=== PATIENT | female | born 1940 | race Two or more races ===

== ENCOUNTER 2016-12-06 13:54 | Inpatient (IN) | payer MEDICARE, MEDICAID ==
[~2016-12-06] VITALS: Ht 154.9 cm; Wt 70.3 kg
[2016-12-06] VITALS (11 sets, daily range): BP systolic 61–83; BP diastolic 40–54
[~2016-12-06 13:54] MED LIST: Piperacillin/Tazobactam 4.5 GM in NS 110 ML IV STA
[2016-12-06] MEDS ORDERED: Vancomycin 1 GM in NS 275 ML IV ONE (14:00)
--- NOTE | 2016-12-06 14:03 | Emergency Room Report ---
History of Present Illness General Chief Complaint: Altered Level of Consciousness Source: Family Member, EMS Present Illness HPI The patient brought to emergency department with hypotension, dyspnea and altered mental status. She's coming from [facility]. She is a DO NOT RESUSCITATE. In the field her glucose is 120. Her blood pressure was 73. EKG showed atrial fibrillation. No other history is available except from family. Son states she had recent hosp for UTI. Treated and they were told resolved. Again with fever and sy few days ago. SNF reported, no evidence of UTI. Today noted to be unresponsive by family and 911 was called. Problems with LE paralysis due to spinal issue. Unable to ambulate. Apparently, POLST recently completed by daughter. Allergies: Coded Allergies: No Known Allergies (Unverified , 12/06/16) Patient History Limited by: medical condition Past Medical History: see triage record Social History Narrative [facility] Reviewed Nursing Documentation: PMH: Agreed, PSxH: Agreed Nursing Documentation-PMH Past Medical History: No History, Except For Hx Cardiac Problems: Yes - AFIB, OR, CHF Hx Hypertension: Yes Hx COPD: No - OSTEOPOROSIS Hx Diabetes: No - RT HIP HEMIARTHROPLASTY History Of Psychiatric Problem: Yes - DEMENTIA Hx Cerebrovascular Accident: Yes Hx Seizures: No - WEAKNESS Review of Systems All Other Systems: limited Physical Exam Vital Signs Date Time Temp Pulse Resp B/P Pulse Ox O2 Delivery O2 Flow Rate FiO2 12/06/16 13:48 120 20 73/33 100 Non-Rebreather 15.0 Sp02 EP Interpretation: reviewed, normal General Appearance: mild distress, Chronically Ill, Stupor Head: normocephalic Eyes: bilateral eye normal inspection ENT: moist mucus membranes Neck: supple Respiratory: lungs clear, normal breath sounds, other - Tachypnea Cardiovascular #1: tachycardia, irregularly irregular, edema - Bilateral lower extremity Cardiovascular #2: 2+ radial (R) Gastrointestinal: normal inspection, normal bowel sounds, non tender, no mass, non-distended Musculoskeletal: back normal Neurologic: other - Unresponsive to pain Psychiatric: other - Unresponsive Skin: normal inspection, warm/dry Procedures Critical Care Time Critical Care Time Total Critical Care Time: 30 min bedside evaluation and treatment excludes procedures (EKG). Reason for critical care: severe sepsis, stupor, determination level of care Possible complications: hypotension, hypertension, OR, shock, arrhythmias, metabolic acidosis, end organ damage, respiratory failure. Interventions: sepsis resuscitation, antibiotics, consultation with and Miner Course: Patient comatose with hypotension and tachypnea. Severe sepsis with resuscitation fluids and antibiotics. Reassessments. Discussion level of care with family. Discussion with Miner. Discussion with admitting MD. Patient improved mentation but still critical. Consultations: nursing staff, EMS, family, Miner, admitting MD Performed by: Dr. Perdomo Tolerated well condition = critical Medical Decision Making Diagnostic Impression: Primary Impression: Severe sepsis Additional Impressions: UTI (urinary tract infection) Qualified Codes: N30.00 - Acute cystitis without hematuria Respiratory alkalosis Hypotension Qualified Codes: I95.89 - Other hypotension ER Course Patient presents with hypotension tachypnea and tachycardia. Differential includes dehydration, sepsis, pneumonia amongst others. Evaluation will be with blood cultures, lactate, EKG, chest x-ray and lactate with other labs. She 's receiving a fluid bolus was begun in the field. She'll get sepsis rehydration. Antibiotics have been ordered. EKG with a fib tachy. Labs with leukocytosis and pyuria. ABG resp alkalosis. BP still low but patient more responsive. Less tachypneic. After 30 ml/kg bolus - repeat 1 liter bolus. I have discussed patient with family and also with Kristofer - Dr. Stein. He recommends patient to stay at [facility]. Still hypotensive, but less tachycardic. More responsive. Admit med Dr. Carrasco. After patient on floor - discussed with son. Laboratory Tests Test 12/06/16 13:30 12/06/16 14:15 12/06/16 14:30 Arterial Blood pH 7.590 (7.350-7.450) Arterial Blood Partial Pressure CO2 19.2 mmHg (35.0-45.0) *L Arterial Blood Partial Pressure O2 291.6 mmHg (75.0-100.0) H Arterial Blood HCO3 18.2 mmol/L (22.0-26.0) L Arterial Blood Oxygen Saturation 99.2 % (92.0-98.0) H Arterial Blood Base Excess -2.4 Noah Test Positive White Blood Count 29.4 K/UL (4.8-10.8) *H Red Blood Count 3.62 M/UL (4.20-5.40) L Hemoglobin 8.6 G/DL (12.0-16.0) L Hematocrit 28.4 % (37.0-47.0) L Mean Corpuscular Volume 78 FL (80-99) L Mean Corpuscular Hemoglobin 23.8 PG (27.0-31.0) L Mean Corpuscular Hemoglobin Concent 30.4 G/DL (32.0-36.0) L Red Cell Distribution Width 16.1 % (11.6-14.8) H Platelet Count 278 K/UL (150-450) Mean Platelet Volume 6.0 FL (6.5-10.1) L Neutrophils (%) (Auto) % (45.0-75.0) Lymphocytes (%) (Auto) % (20.0-45.0) Monocytes (%) (Auto) % (1.0-10.0) Eosinophils (%) (Auto) % (0.0-3.0) Basophils (%) (Auto) % (0.0-2.0) Differential Total Cells Counted 100 Neutrophils % (Manual) 75 % (45-75) Lymphocytes % (Manual) 10 % (20-45) L Monocytes % (Manual) 7 % (1-10) Eosinophils % (Manual) 0 % (0-3) Basophils % (Manual) 0 % (0-2) Band Neutrophils 8 % (0-8) Platelet Estimate Adequate Platelet Morphology Normal Polychromasia 1+ Hypochromasia 2+ Anisocytosis 1+ Microcytosis 1+ Prothrombin Time 23.7 SEC (9.30-11.50) H Prothrombin Time INR 2.2 (0.9-1.1) H PTT 36 SEC (23-33) H Sodium Level 135 mEQ/L (135-145) Potassium Level 5.1 mEQ/L (3.4-4.9) H Chloride Level 99 mEQ/L (98-107) Carbon Dioxide Level 17 mEQ/L (20-30) L Anion Gap 19 (5-15) H Blood Urea Nitrogen 44 mg/dL (7-23) H Creatinine 1.7 mg/dL (0.5-0.9) H Estimate Glomerular Filtration Rate mL/min (>60) Glucose Level 93 mg/dL (74-106) Lactic Acid Level 6.40 mmol/L (0.66-2.22) H Calcium Level 7.5 mg/dL (8.6-10.2) L Total Bilirubin 0.4 mg/dL (0.0-1.2) Aspartate Amino Transferase (AST) 22 U/L (5-40) Alanine Aminotransferase (ALT) 9 U/L (3-33) Alkaline Phosphatase 111 U/L (35-104) H Total Creatine Kinase 185 U/L (26-140) H Troponin I < 0.30 ng/mL (<=0.30) Pro-B-Type Natriuretic Peptide 59136 pg/mL (0-450) H Total Protein 6.0 g/dL (6.6-8.7) L Albumin 1.9 g/dL (3.5-5.2) L Globulin 4.1 g/dL Albumin/Globulin Ratio 0.4 (1.0-2.7) L Urine Color Yellow Urine Appearance Turbid Urine pH 7 (4.5-8.0) Urine Specific [place] 1.010 (1.005-1.035) Urine Protein 4+ (NEGATIVE) H Urine Glucose (UA) Negative (NEGATIVE) Urine Ketones Negative (NEGATIVE) Urine Occult Blood 5+ (NEGATIVE) H Urine Nitrite Negative (NEGATIVE) Urine Bilirubin Negative (NEGATIVE) Urine Urobilinogen Normal MG/DL (0.0-1.0) Urine Leukocyte Esterase 3+ (NEGATIVE) H Urine RBC Tntc /HPF (0 - 2) H Urine WBC Tntc /HPF (0 - 2) H Urine Squamous Epithelial Cells Few /LPF (NONE/OCC) Urine Bacteria Many /HPF (NONE) H EKG Diagnostic Results Rate: tachycardiac Rhythm: other - a fib ST Segments: no acute changes Rhythm Strip Diag. Results Rhythm: no PVC's, no ectopy, other - a fib Chest X-Ray Diagnostic Results Chest X-Ray Diagnostic Results : Chest X-Ray Ordered: Yes # of Views/Limited/Complete: 1 View Indication: Other EP Interpretation: Yes Interpretation: no consolidation, no effusion, no pneumothorax, other - inc cor Impression: Other Interpreting ER Provider: Electronically signed by Jay Perdomo MD Last Vital Signs Date Time Temp Pulse Resp B/P Pulse Ox O2 Delivery O2 Flow Rate FiO2 12/07/16 00:00 97.7 96 20 76/45 94 12/06/16 20:10 Non-Rebreather 14.0 Status: improved Disposition: ADMITTED INPATIENT Condition: Critical Jay Perdomo M.D. Dec 06, 2016 14:03
[2016-12-06 14:42] LABS: MEAN CORPUSCULAR HEMOGLOBIN 23.8 PG (27.0-31.0); MEAN CORPUSCULAR HGB CONC 30.4 G/DL (32.0-36.0); MEAN CORPUSCULAR VOLUME 78 FL (80-99); PLATELET COUNT 278 K/UL (150-450); RED BLOOD COUNT 3.62 M/UL (4.20-5.40); RED CELL DISTRIBUTION WIDTH 16.1 % (11.6-14.8)
[2016-12-06 14:43] LABS: ABG ALLEN TEST POSITIVE; ABG BASE EXCESS -2.4; ABG PCO2 19.2 mmHg (35.0-45.0)
[2016-12-06 14:44] LABS: WHITE BLOOD COUNT 29.4 K/UL (4.8-10.8)
[2016-12-06 14:48] LABS: INR 2.2 (0.9-1.1); PROTHROMBIN TIME 23.7 SEC (9.30-11.50)
[2016-12-06 14:49] LABS: APPEARANCE,URINE TURBID; KETONES,URINE NEGATIVE (NEGATIVE); LEUKOCYTE ESTERASE ,URINE 3+ (NEGATIVE); NITRITE,URINE NEGATIVE (NEGATIVE); PH,URINE 7 (4.5-8.0); PROTEIN,URINE 4+ (NEGATIVE); UROBILINOGEN,URINE NORMAL MG/DL (0.0-1.0)
[2016-12-06 14:57] LABS: BACTERIA,URINE MANY /HPF; RBC,URINE TNTC /HPF (0 - 2); SQUAMOUS EPITHELIAL CELL,UR FEW /LPF (NONE/OCC); WBC,URINE TNTC /HPF (0 - 2)
[2016-12-06 15:03] LABS: TROPONIN I < 0.30 ng/mL (<=0.30)
[2016-12-06 15:06] LABS: ALANINE AMINOTRANSFERASE 9 U/L (3-33); ALBUMIN/GLOBULIN RATIO 0.4 (1.0-2.7); ANION GAP 19 (5-15); ASPARTATE AMINO TRANSFERASE 22 U/L (5-40); CALCIUM 7.5 mg/dL (8.6-10.2); CARBON DIOXIDE 17 mEQ/L (20-30); CHLORIDE 99 mEQ/L (98-107); CREATININE 1.7 mg/dL (0.5-0.9); HEMOLYSIS 45; POTASSIUM 5.1 mEQ/L (3.4-4.9); SODIUM 135 mEQ/L (135-145)
[2016-12-06 15:08] LABS: REFLEX LACTIC ACID YES OR NO YES
[2016-12-06] MEDS ORDERED: Zosyn 4.5gm inj ONE (15:23)
--- NOTE | 2016-12-06 15:30 | Diagnostic Imaging Report ---
Indication: Dyspnea Comparison: None A single view chest radiograph was obtained. Findings: Heart is enlarged. Lungs are essentially clear. Bronchovascular markings do appear somewhat prominent. Bones are osteopenic. Aorta is calcified. Impression: Limited evaluation due to low lung volume. No acute disease
[2016-12-06 15:48] LABS: ANISOCYTOSIS 1+; BAND NEUTROPHILS % (MANUAL) 8 % (0-8); BASOPHILS % (MANUAL) 0 % (0-2); EOSINOPHILS % (MANUAL) 0 % (0-3); HYPOCHROMASIA 2+; LYMPHOCYTES % (MANUAL) 10 % (20-45); NEUTROPHILS % (MANUAL) 75 % (45-75); PLATELET ESTIMATE ADEQUATE; POLYCHROMASIA 1+; TOTAL CELLS COUNTED 100
[2016-12-06 15:49] LABS: MICROCYTES 1+; PLATELET MORPHOLOGY NORMAL
[2016-12-06] MEDS ORDERED: Vancomycin 1gm inj IVPB ONE (16:36)
[2016-12-06] MEDS ORDERED: UNOBMED (17:07)
[2016-12-06] MEDS ORDERED: DIOVAN80 MG ORAL (21:26)
[2016-12-06] MEDS ORDERED: ACETAMINOPHEN325 M1 ORAL (21:26)
[2016-12-06] MEDS ORDERED: FUROSEMIDE20 M1 ORAL (21:26)
[2016-12-06] MEDS ORDERED: WARFARIN SODIUM1 MG ORAL (21:26)
[2016-12-06] MEDS ORDERED: METOPROLOL ER-1 EAC1 PO (21:26)
[2016-12-06] MEDS ORDERED: VITAMIN D1000 UNI1 ORAL (21:26)
[2016-12-06] MEDS ORDERED: ATORVASTATIN CA10 MG ORAL (21:26)
[2016-12-07] VITALS (8 sets, daily range): BP systolic 76–130; BP diastolic 41–58
[2016-12-07] MEDS ORDERED: VANCOMYCIN1 GM/2502 IVPB (11:25)
[2016-12-07] MEDS ORDERED: ACETAMINOPHEN325 M1 ORAL (11:26)
[2016-12-07] MEDS ORDERED: SODIUM CHLORIDE50 M1 IV (11:32)
[2016-12-07] MEDS ORDERED: ZOSYN 3.373.375 GM/1 IVPB (12:54)
--- NOTE | 2016-12-07 15:35 | History & Physical ---
History and Physical History & Physicial Dictated for Int Med-Dr Carrasco no. [id number] GASPER SOLIS Dec 07, 2016 15:35
[2016-12-07] MEDS ORDERED: Vancomycin 750mg/D5W 275ml IVPB SCH ×2 (16:30)
[2016-12-07] MEDS: Piperacillin/Tazobactam 3.375 GM in D5W 110 ML IVPB SCH (19:35)
--- NOTE | 2016-12-07 21:50 | Consultation ---
History of Present Illness General Chief Complaint: Altered Level of Consciousness Present Illness Allergies: Coded Allergies: No Known Allergies (Unverified , 12/06/16) Medication History Scheduled [id number]-Atzf-Juwpndcx,Iso (Zosyn 3.375 Gm Pre Mix-Bag), 3.375 GM IVPB EVERY 8 HOURS, (Reported) Vancomycin Hcl/D5w (Vancomycin-D5w 1 G/250 Ml), 750 MG IVPB Q24H, (Reported) Scheduled PRN 0.9 % Sodium Chloride (Sodium Chloride), 1,000 ML IV Cont PRN for 75mls/hr, ( Reported) Acetaminophen* (Acetaminophen 325MG Tablet*), 650 MG ORAL Q4H PRN for Mild Pain/ Temp > 100.5, (Reported) Discontinued Medications Acetaminophen* (Acetaminophen 325MG Tablet*), 325 MG ORAL Q4H PRN for Pain Scale (3-5), (Reported) Discontinued Reason: MD discontinued med Atorvastatin Calcium* (Lipitor*), 10 MG ORAL BEDTIME, (Reported) Discontinued Reason: Medication dose changed Cholecalciferol (Vitamin D3)* (Vitamin D*), 1,000 UNIT ORAL DAILY, (Reported) Discontinued Reason: MD discontinued med Furosemide* (Lasix*), 20 MG ORAL DAILY, (Reported) Discontinued Reason: MD discontinued med Metoprolol Succinate/Hctz (Metoprolol Er-Hctz 100-12.5 Mg), 1 EACH PO, (Reported ) Discontinued Reason: MD discontinued med Unable to Obtain Medications (Unable To Obtain Meds), (Reported) Discontinued Reason: MD discontinued med Valsartan (Diovan), 80 MG ORAL DAILY, (Reported) Discontinued Reason: MD discontinued med Warfarin Sod* (Warfarin Sod*), 1 MG ORAL DAILY, (Reported) Discontinued Reason: MD discontinued med Patient History Healthcare decision maker Resuscitation status Do Not Resuscitate Advanced Directive on File Yes Physical Exam Last 24 Hour Vital Signs Date Time Temp Pulse Resp B/P Pulse Ox O2 Delivery O2 Flow Rate FiO2 12/07/16 20:00 97.9 95 20 103/48 96 Nasal Cannula 12/07/16 18:57 84 82/42 12/07/16 16:30 96.3 80 18 88/52 96 Room Air 12/07/16 12:14 97.7 86 19 130/46 98 Room Air 12/07/16 08:00 96.8 78 18 108/58 99 Nasal Cannula 12/07/16 04:00 97.9 81 20 80/41 100 12/07/16 00:00 97.7 96 20 76/45 94 Intake and Output 12/06/16 12/07/16 19:00 07:00 Intake Total 0 ml 195 ml Output Total 1400 ml Balance 0 ml -1205 ml Intake Oral 0 ml 120 ml IV Total 75 ml Output Urine Total 1400 ml # Bowel Movements 2 Height (Feet): 5 Height (Inches): 1.00 Weight (Pounds): 155 Medications Current Medications Medications (Trade) Dose Ordered Sig/Karol Route PRN Reason Start Time Stop Time Status Last Admin Dose Admin Acetaminophen 650 mg 650 mg Q4H PRN ORAL Mild Pain/Temp > 100.5 12/06/16 23:45 01/05/17 23:44 12/07/16 00:22 Piperacillin Sod/ Tazobactam Sod/ Dextrose (Zosyn/D5W) 110 ml @ 27.5 mls/hr Q12HR@0500,1700 IVPB 12/07/16 17:00 12/14/16 16:59 12/07/16 19:35 Sodium Chloride 1,000 ml @ 75 mls/hr [id number] IV 12/06/16 19:45 01/05/17 19:44 12/07/16 21:00 Vancomycin HCl 1 ea 1 ea DAILY PRN MISC Per rx protocol 12/06/16 17:45 01/05/17 17:44 Vancomycin HCl/ Dextrose (Vancomycin/D5W) 275 ml @ 183.708 mls/hr Q24H IVPB 12/07/16 16:30 12/12/16 16:29 12/07/16 16:52 ALFREDITO BANUELOS Dec 07, 2016 21:50
--- NOTE | 2016-12-07 23:52 | History and Physical Report ---
DATE OF ADMISSION: 12/06/2016 CHIEF COMPLAINT: The patient is a 76-year-old white female, who presents with complaint of altered mental status and hypotension. HISTORY OF PRESENT ILLNESS: The patient is a resident of [facility]. According to staff at [facility], the patient became febrile on 12/06/2016. The patient was having fevers of up to 100 degrees Fahrenheit. In the afternoon, the patient's blood pressure dropped to 80s over 40s. Blood pressure was then 70/palp. EMS was called. The patient was transported to [place] emergency room. Upon evaluation at [place] emergency room, the patient was found to have blood pressure systolic in the 70s. The patient was altered. The patient was admitted for hypotension to rule out sepsis. PAST MEDICAL HISTORY: Significant for, 1. Hypertension. 2. Atrial fibrillation. 3. Cerebrovascular accident in 2013. 4. Congestive heart failure. 5. Coronary artery disease, status post myocardial infarction in 2013. 6. Hyperlipidemia. 7. Alzheimer's dementia. PAST SURGICAL HISTORY: Significant for right hip total replacement. CURRENT MEDICATIONS: From [facility], 1. Calcium carbonate 600/400 mg one tablet p.o. twice daily. 2. Fosamax 70 mg one tablet p.o. every Friday. 3. Lasix 20 mg one tablet p.o. twice daily. 4. Lipitor 40 mg one tablet p.o. at bedtime. 5. Metoprolol 12.5 mg one tablet p.o. twice daily. 6. Nitroglycerin 0.4 mg sublingual p.r.n. 7. [place] 5/325 mg one tablet p.o. q.6 hours p.r.n. 8. Valsartan 40 mg one tablet p.o. twice daily. ALLERGIES: No known drug allergies. SOCIAL HISTORY: The patient is a and lives at [facility] as above. The patient denies tobacco or alcohol use. REVIEW OF SYSTEMS: Unable to assess, secondary to patient's mental status. PHYSICAL EXAMINATION: VITAL SIGNS: Blood pressure 73/33, respiratory rate 20, pulse 120, and temperature 99.4 degrees. GENERAL: The patient is well-developed, well-nourished, white female, who is lethargic, however, arousable. HEENT: Eyes, pupils are equal and responsive to light and accommodation. Extraocular movements are intact. NECK: Supple without lymphadenopathy. CHEST: Lungs are clear to auscultation bilaterally without wheezes or rales. CARDIOVASCULAR: Regular rhythm and rate. S1 and S2 are normal without murmurs, rubs, or gallops. ABDOMEN: Soft, nontender, and nondistended. Positive bowel sounds. No hepatosplenomegaly. Currently, no rebound or guarding noted. EXTREMITIES: Negative for clubbing, cyanosis, or edema. RECTAL: Refused. GENITAL: Refused. NEUROLOGIC: Cranial nerves II through XII are grossly intact without focal deficits. Motor strength is 5/5 bilaterally. Deep tendon reflexes 2+ plantar. LABORATORY STUDIES: WBC 29.4 (elevated), hemoglobin 8.6, hematocrit 20.4, and platelets 178,000. Sodium 135, potassium 5.1, chloride 99, CO2 17, BUN 44, creatinine 1.7, lactic acid 8.4, and glucose 93. DICTATION ENDS ABRUPTLY Lencho Marin M.D. DR: JERICHO JOB#: [id number] CC:
--- NOTE | 2016-12-07 23:52 | History and Physical Report ---
DATE OF ADMISSION: 12/06/[address] Carrasco. CHIEF COMPLAINT: The patient is a 76-year-old white female, who presents with chief complaint of altered mental status and hypotension. HISTORY OF PRESENT ILLNESS: The patient is a resident of [facility]. According to the patient's daughter, Buddy Núñez, the patient began to experience fever yesterday morning. According to staff of [facility], the patient began to experience fevers of up to 100 degrees Fahrenheit on 12/06/2016. The patient's blood pressure then dropped to the 70s. The patient presented to [place] [facility]. Blood pressure was found to be 70/30. The patient was admitted for hypotension, altered mental status and probable sepsis. PAST MEDICAL HISTORY: Significant for, 1. Hypertension. 2. Atrial fibrillation. 3. Hypercholesterolemia. 4. Cerebrovascular disease, status post cerebrovascular accident in 2013. 5. Congestive heart failure. 6. Coronary artery disease, status post myocardial infarction in 2013. PAST SURGICAL HISTORY: Significant for right total hip replacement. CURRENT MEDICATIONS: 1. Calcium carbonate one tablet p.o. twice daily. 2. Fosamax 70 mg one tablet p.o. every weekly on Friday. 3. Lasix 20 mg one tablet p.o. twice daily. 4. Lipitor 40 mg one tablet p.o. at bedtime. 5. Metoprolol 12.5 mg one tablet p.o. twice daily. 6. Nitroglycerin 0.4 mg one tablet p.o. p.r.n. 7. [place] 5/325 mg one tablet p.o. q.6 hours p.r.n. 8. Tylenol 650 mg one tablet p.o. q.8 hours p.r.n. 9. Valsartan 40 mg one tablet p.o. twice daily. ALLERGIES: No known drug allergies. SOCIAL HISTORY: The patient is . The patient lives at [facility] as above. The patient denies tobacco or alcohol use. REVIEW OF SYSTEMS: Unable to assess, secondary to patient's mental status. PHYSICAL EXAMINATION: VITAL SIGNS: Temperature 97.7 degrees, blood pressure 72/33, pulse 120, respiratory rate 20, and temperature 99.4 degrees. GENERAL: The patient is a well-developed, well-nourished, white female, in no apparent distress. The patient is lethargic, however, arousable. HEENT: Eyes, pupils are equal and responsive to light and accommodation. Extraocular movements are intact. NECK: Supple without lymphadenopathy. CHEST: Lungs are clear to auscultation bilaterally without wheezes or rales. CARDIOVASCULAR: Regular rhythm and rate. S1 and S2 are normal without murmurs, rubs, or gallops. ABDOMEN: Soft, nontender, and nondistended. Positive bowel sounds. No hepatosplenomegaly. Currently, no rebound or guarding noted. EXTREMITIES: Negative for clubbing, cyanosis, or edema. RECTAL: Refused. GENITAL: Refused. NEUROLOGIC: Cranial nerves II through XII are grossly intact without focal deficits. Motor strength is 5/5 bilaterally. Deep tendon reflexes 2+ plantar. LABORATORY AND DIAGNOSTIC STUDIES: WBC elevated at 29.4, hemoglobin 8.6, hematocrit 20.4, and platelets 278,000. Sodium 135, potassium 5.1, chloride 99, CO2 17, BUN 44, creatinine 1.7, and glucose 93. Lactic acid is 6.40. Troponin is less than 0.3. BNP elevated at 11,267. Urinalysis showed 4+ protein, 5+ occult blood, with 3+ leukocyte esterase, and too numerous to count RBCs and WBCs with many bacteria. ASSESSMENT: This is a 76-year-old white female. 1. Urinary tract infection. 2. Sepsis. 3. Leukocytosis. 4. Altered mental status. 5. Hypertension. 6. Atrial fibrillation. 7. Cerebrovascular disease. 8. Congestive heart failure. 9. Coronary artery disease. TREATMENT: 1. Urinary tract infection/sepsis. A urine culture is pending. The patient has been started empirically on vancomycin. Levaquin will be added for gram-negative coverage due to urinary tract infection. An Infectious Disease consultation was obtained with Dr. Munson. 2. Atrial fibrillation. A Cardiology consultation was obtained with Dr. Shai Fish. 3. Hypertension. Continue valsartan as above. 4. Atrial fibrillation as above. A Cardiology consultation was obtained with Dr. Shai Fish. 5. Cerebrovascular disease. 6. Congestive heart failure as above. A Cardiology consultation was obtained with Dr. Shai Fish. 7. Coronary artery disease. Lencho Marin M.D. DR: JERICHO JOB#: [id number] CC:
[2016-12-08 04:00] VITALS: BP 94/46
[2016-12-08] MEDS: Piperacillin/Tazobactam 3.375 GM in D5W 110 ML IVPB SCH (04:35)
[2016-12-08 07:35] LABS: MEAN CORPUSCULAR HEMOGLOBIN 22.9 PG (27.0-31.0); MEAN CORPUSCULAR HGB CONC 29.8 G/DL (32.0-36.0); MEAN CORPUSCULAR VOLUME 77 FL (80-99); MEAN PLATELET VOLUME 7.3 FL (6.5-10.1); PLATELET COUNT 288 K/UL (150-450); RED BLOOD COUNT 3.57 M/UL (4.20-5.40); RED CELL DISTRIBUTION WIDTH 15.8 % (11.6-14.8)
[2016-12-08 07:37] LABS: WHITE BLOOD COUNT 30.2 K/UL (4.8-10.8)
[2016-12-08 07:47] LABS: ALANINE AMINOTRANSFERASE 12 U/L (3-33); ALBUMIN/GLOBULIN RATIO 0.4 (1.0-2.7); ANION GAP 15 (5-15); ASPARTATE AMINO TRANSFERASE 24 U/L (5-40); CALCIUM 6.2 mg/dL (8.6-10.2); CARBON DIOXIDE 16 mEQ/L (20-30); CHLORIDE 108 mEQ/L (98-107); CREATININE 1.4 mg/dL (0.5-0.9); HEMOLYSIS 0; POTASSIUM 3.9 mEQ/L (3.4-4.9); SODIUM 139 mEQ/L (135-145); TOTAL PROTEIN 5.3 g/dL (6.6-8.7)
[2016-12-08 08:24] VITALS: BP 93/48
[2016-12-08 08:40] LABS: ANISOCYTOSIS 1+; BAND NEUTROPHILS % (MANUAL) 4 % (0-8); BASOPHILS % (MANUAL) 0 % (0-2); EOSINOPHILS % (MANUAL) 0 % (0-3); HYPOCHROMASIA 1+; LYMPHOCYTES % (MANUAL) 5 % (20-45); MICROCYTES 1+; NEUTROPHILS % (MANUAL) 89 % (45-75); PLATELET ESTIMATE ADEQUATE; PLATELET MORPHOLOGY NORMAL; TOTAL CELLS COUNTED 100
[2016-12-08 08:41] LABS: BURR CELLS OCCASIONAL
[2016-12-08] MEDS ORDERED: NS 275ml ONE (10:05)
[2016-12-08] MEDS ORDERED: Tubing IV Secondary IV ONE (10:05)
[2016-12-08] MEDS ORDERED: NS 550ML IV ONE (10:05)
[2016-12-08 11:23] VITALS: BP 91/53
[2016-12-08 13:47] VITALS: BP 94/55
[2016-12-08] MEDS ORDERED: Piperacillin/Tazobactam 3.375 GM in D5W 110 ML IVPB SCH (14:00)
--- NOTE | 2016-12-08 14:03 | Internal Med Progress Note ---
Subjective Date of Service: Dec 08, 2016 Physician Name Gasper Solis Attending Physician Dimitri Carrasco MD Allergies: Coded Allergies: No Known Allergies (Unverified , 12/06/16) ROS Limited/Unobtainable: Yes Subjective 76 YO F admitted with altered mental status and hypotension. Now Sepsis and Urinary tract infection. Cover for Int Med-Dr Carrasco. Transfer to [place] held yesterday due to hypotension Objective Last Vital Signs Date Time Temp Pulse Resp B/P Pulse Ox O2 Delivery O2 Flow Rate FiO2 12/08/16 13:47 97.0 96 20 94/55 99 Nasal Cannula 2.0 General Appearance: WD/WN, no apparent distress, alert EENT: PERRL/EOMI, normal ENT inspection Neck: non-tender, normal alignment, supple Cardiovascular: normal peripheral pulses, no gallop/murmur, no JVD, irregularly irregular Respiratory/Chest: chest wall non-tender, lungs clear, normal breath sounds, no respiratory distress, no accessory muscle use Abdomen: normal bowel sounds, non tender, soft, no organomegaly, no mass Extremities: normal range of motion Neurologic: waste specialist II-XII grossly normal Skin: normal pigmentation, warm/dry Laboratory Tests Test 12/08/16 05:40 White Blood Count 30.2 K/UL (4.8-10.8) *H Red Blood Count 3.57 M/UL (4.20-5.40) L Hemoglobin 8.2 G/DL (12.0-16.0) L Hematocrit 27.5 % (37.0-47.0) L Mean Corpuscular Volume 77 FL (80-99) L Mean Corpuscular Hemoglobin 22.9 PG (27.0-31.0) L Mean Corpuscular Hemoglobin Concent 29.8 G/DL (32.0-36.0) L Red Cell Distribution Width 15.8 % (11.6-14.8) H Platelet Count 288 K/UL (150-450) Mean Platelet Volume 7.3 FL (6.5-10.1) Neutrophils (%) (Auto) % (45.0-75.0) Lymphocytes (%) (Auto) % (20.0-45.0) Monocytes (%) (Auto) % (1.0-10.0) Eosinophils (%) (Auto) % (0.0-3.0) Basophils (%) (Auto) % (0.0-2.0) Differential Total Cells Counted 100 Neutrophils % (Manual) 89 % (45-75) H Lymphocytes % (Manual) 5 % (20-45) L Monocytes % (Manual) 2 % (1-10) Eosinophils % (Manual) 0 % (0-3) Basophils % (Manual) 0 % (0-2) Band Neutrophils 4 % (0-8) Platelet Estimate Adequate Platelet Morphology Normal Hypochromasia 1+ Anisocytosis 1+ Microcytosis 1+ Jordan Cells Occasional Sodium Level 139 mEQ/L (135-145) Potassium Level 3.9 mEQ/L (3.4-4.9) Chloride Level 108 mEQ/L (98-107) H Carbon Dioxide Level 16 mEQ/L (20-30) L Anion Gap 15 (5-15) Blood Urea Nitrogen 49 mg/dL (7-23) H Creatinine 1.4 mg/dL (0.5-0.9) H Estimat Glomerular Filtration Rate mL/min (>60) Glucose Level 59 mg/dL (74-106) L Calcium Level 6.2 mg/dL (8.6-10.2) L Phosphorus Level 4.1 mg/dL (2.5-4.8) Magnesium Level 1.7 mg/dL (1.7-2.5) Total Bilirubin 0.2 mg/dL (0.0-1.2) Aspartate Amino Transf (AST/SGOT) 24 U/L (5-40) Alanine Aminotransferase (ALT/SGPT) 12 U/L (3-33) Alkaline Phosphatase 141 U/L (35-104) H Total Protein 5.3 g/dL (6.6-8.7) L Albumin 1.7 g/dL (3.5-5.2) L Globulin 3.6 g/dL Albumin/Globulin Ratio 0.4 (1.0-2.7) L Microbiology Date/Time Source Procedure Growth Status 12/06/16 14:15 Blood Blood Culture - Preliminary Gram Negative Gregorio Resulted 12/06/16 14:00 Blood Blood Culture - Preliminary Gram Negative Gregorio Resulted 12/06/16 14:30 Urine,Clean Catch Urine Culture - Final Escherichia Coli - Esbl Complete Intake and Output 12/07/16 12/08/16 19:00 07:00 Intake Total 750 ml 765.0 ml Output Total 650 ml Balance 750 ml 115.0 ml IV Total 750 ml 765.0 ml Output Urine Total 650 ml # Bowel Movements 2 Assessment/Plan Problem List: (1) E coli infection (2) UTI (urinary tract infection) Assessment & Plan: E. Coli. D/C vanco. Continue zosyn. (3) Altered mental status (4) Hypotension Assessment & Plan: Due to sepsis (5) Atrial fibrillation (6) Sepsis Assessment & Plan: Gram neg gregorio. ?E. Coli from UTI? Cont zosyn. Await ID and sensitivity (7) Leukocytosis (8) Hypertension Assessment & Plan: currently hypotensive; hold anti hypertensive meds. (9) Cerebral vascular disease (10) Congestive heart failure (CHF) (11) Coronary artery disease Status: not improved Assessment/Plan Transfer to [place] today. GASPER SOLIS Dec 08, 2016 14:03
--- NOTE | 2016-12-08 15:45 | Pulmonology Progress Note ---
Subjective Allergies: Coded Allergies: No Known Allergies (Unverified , 12/06/16) Objective Last 24 Hour Vital Signs Date Time Temp Pulse Resp B/P Pulse Ox O2 Delivery O2 Flow Rate FiO2 12/08/16 13:47 97.0 96 20 94/55 99 Nasal Cannula 2.0 12/08/16 11:23 98.6 93 20 91/53 99 Nasal Cannula 2.0 12/08/16 08:24 98.8 93 20 93/48 99 Nasal Cannula 12/08/16 04:00 97.9 97 20 94/46 98 Nasal Cannula 2.0 12/07/16 23:52 97.2 93 18 99/51 97 Nasal Cannula 2.0 12/07/16 20:00 97.9 95 20 103/48 96 Nasal Cannula 12/07/16 18:57 84 82/42 12/07/16 16:30 96.3 80 18 88/52 96 Room Air Intake and Output 12/07/16 12/08/16 19:00 07:00 Intake Total 750 ml 765.0 ml Output Total 650 ml Balance 750 ml 115.0 ml IV Total 750 ml 765.0 ml Output Urine Total 650 ml # Bowel Movements 2 Microbiology Date/Time Source Procedure Growth Status 12/06/16 14:15 Blood Blood Culture - Preliminary Gram Negative Gregorio Resulted 12/06/16 14:00 Blood Blood Culture - Preliminary Gram Negative Gregorio Resulted 12/06/16 14:30 Urine,Clean Catch Urine Culture - Final Escherichia Coli - Esbl Complete Laboratory Tests 12/08/16 05:40: White Blood Count 30.2*H, Red Blood Count 3.57L, Hemoglobin 8.2L, Hematocrit 27.5L, Mean Corpuscular Volume 77L, Mean Corpuscular Hemoglobin 22.9L, Mean Corpuscular Hemoglobin Concent 29.8L, Red Cell Distribution Width 15.8H, Platelet Count 288, Mean Platelet Volume 7.3, Neutrophils (%) (Auto) , Lymphocytes (%) (Auto) , Monocytes (%) (Auto) , Eosinophils (%) (Auto) , Basophils (%) (Auto) , Differential Total Cells Counted 100, Neutrophils % ( Manual) 89H, Lymphocytes % (Manual) 5L, Monocytes % (Manual) 2, Eosinophils % ( Manual) 0, Basophils % (Manual) 0, Band Neutrophils 4, Platelet Estimate Adequate, Platelet Morphology Normal, Hypochromasia 1+, Anisocytosis 1+, Microcytosis 1+, [place] Cells Occasional, Sodium Level 139, Potassium Level 3.9, Chloride Level 108H, Carbon Dioxide Level 16L, Anion Gap 15, Blood Urea Nitrogen 49H, Creatinine 1.4H, Estimat Glomerular Filtration Rate , Glucose Level 59L, Calcium Level 6.2L, Phosphorus Level 4.1, Magnesium Level 1.7, Total Bilirubin 0.2, Aspartate Amino Transf (AST/SGOT) 24, Alanine Aminotransferase ( ALT/SGPT) 12, Alkaline Phosphatase 141H, Total Protein 5.3L, Albumin 1.7L, Globulin 3.6, Albumin/Globulin Ratio 0.4L ALFREDITO BANUELOS Dec 08, 2016 15:45
[2016-12-09 11:46] LABS: OTHERS PATHOLOGIST COMMENT
--- NOTE | 2016-12-10 00:45 | Discharge Summary 2 SIG ---
DATE OF ADMISSION: 12/06/2016 DATE OF DISCHARGE: 12/08/2016 The patient was admitted under Dr. Carrasco. REASON FOR ADMISSION: 76-year-old female was brought to emergency department with hypotension, dyspnea, and altered mental status. The patient was DNR/DNI status. She came from [facility]. Blood sugar was 120, blood pressure was -73/33. EKG showed atrial fibrillation with a heart rate of 120. According to the son, the patient had recent hospitalization for urinary tract infection. Urinalysis with evidence of urinary tract infection. The patient was placed on 100% nonrebreathing mask with saturation of 100%. WBC -29.4. BUN - 44 and creatinine- 1.7. The patient was started on the IV fluid resuscitation, pancultured, started on empiric antibiotics, and admitted for further management. ADMITTING DIAGNOSES: 1. Severe sepsis. 2. Urinary tract infection. 3. Hypotension 4. Possible dehydration. 5. Altered mental status secondary to sepsis 6. Acute kidney injury HOSPITAL COURSE: The patient was admitted. The patient is DNR/DNI status. The patient was started on empiric antibiotics. Subsequently, urine culture grew E. coli ESBL. Blood culture grew E. coli ESBL. Antibiotic regimen optimized. ABG on 100% nonrebreathing mask on the day of admission showed respiratory alkalosis with a pH of 7.59 and pCO2 of 19.2. Subsequently as clinical condition improved, patient was downgrade to nasal cannula and prior to discharge on nasal cannula 2 liters, saturating 99%. Blood pressure improved to 94/55. Creatinine down to 1.4 with intravenous hydration. Heart rate normalized. Lactic acid 6.4 and 5.4 respectfully on the two consecutive dates. The patient was afebrile. In two days, WBC -3.2, hemoglobin -8.2, and hematocrit- 27.5. Hemoglobin and hematocrit were closely monitored, remained at the baseline. Renal parameters improved, acute kidney injury was likely due to dehydration and sepsis. Altered mental status likely secondary to acute encephalopathy due to sepsis. Blood pressure remained stable. Heart rate controlled. Consider anticoagulation for atrial fibrillation. The patient was stable for transfer to [facility] per insurance purposes on the IV antibiotics as outlined in medication reconciliation list and IV fluids. DISCHARGE DIAGNOSES: 1. Severe sepsis with bacteremia. 2. Bacteremia, Escherichia coli, extended-spectrum beta-lactamases. 3. Urinary tract infection with Escherichia coli, extended-spectrum beta-lactamases. 4. Dehydration. 5. Respiratory alkalosis. 6. Altered mental status secondary to acute toxic metabolic encephalopathy due to the infection process. 7. Atrial fibrillation. 8. Acute kidney injury and chronic renal insufficiency likely due to dehydration. DISCHARGE MEDICATIONS: See medication reconciliation list. The patient was transferred on intravenous antibiotics. DISCHARGE INSTRUCTIONS: The patient was discharged to [facility]. Follow up with the medical doctor at the facility. Dimitri Carrasco M.D. I have been assigned to dictate discharge summary on this account and I was not involved in the patient's management. Lindsey Vaughnephraim N.PElaine DR: GONZALO JOB#: [id number] CC: MAT
--- NOTE | 2016-12-11 16:31 | Cardiology Report ---
APPROVED REPORT EKG Measurement Heart [id number] Atrial fibrillation with rapid ventricular response with premature ventricular or aberrantly conducted complexes Low voltage QRS Abnormal ECG
== END 2016-12-08 13:53 | disposition short-term general hospital (02) | DRG 720 ==
LOC: EDBD 13:54 → EMR 15:45 → 4W 17:21 → EDBEDREQ 18:50
DX: A41.51 Sepsis due to Escherichia coli [E. coli] (principal); N17.9 Acute kidney failure, unspecified; E87.3 Alkalosis; G92 Toxic encephalopathy; N39.0 Urinary tract infection, site not specified; E86.0 Dehydration; I48.91 Unspecified atrial fibrillation; I50.9 Heart failure, unspecified; I12.9 Hypertensive chronic kidney disease with stage 1 through stage 4 chronic kidney disease, or unspecified chronic kidney disease; Z16.12 Extended spectrum beta lactamase (ESBL) resistance; R65.20 Severe sepsis without septic shock; Z66 Do not resuscitate; I25.10 Atherosclerotic heart disease of native coronary artery without angina pectoris; Z86.73 Personal history of transient ischemic attack (TIA), and cerebral infarction without residual deficits; N18.9 Chronic kidney disease, unspecified; G30.9 Alzheimer's disease, unspecified; F02.80 Dementia in other diseases classified elsewhere, unspecified severity, without behavioral disturbance, psychotic disturbance, mood disturbance, and anxiety; Z96.641 Presence of right artificial hip joint; E78.00 Pure hypercholesterolemia, unspecified
CPT/HCPCS: 36415; 36600; 71010; 80053; 81003; 82550; 82803; 83605; 83735; 83880; 84100; 84484; 85007; 85025; 85610; 85730; 87040; 87081; 87086; 87181; 93005